=== PATIENT | male | born 1965 | race Caucasian/White ===

== ENCOUNTER 2021-02-04 17:31 | Inpatient (IN) | payer OTHER ==
[2021-02-04 21:13] VITALS: BMI 23.8
[2021-02-04] MEDS ORDERED: P-EPHED 60MG/TRIPROLIDI 2.5MG TABLET PO PRN (21:59)
[2021-02-04] MEDS ORDERED: NICOTINE POLACRILEX 2 MG GUM BUC PRN (21:59)
[2021-02-04] MEDS ORDERED: ACETAMINOPHEN 325 MG TABLET (FP) PO PRN ×2 (21:59)
[2021-02-04] MEDS ORDERED: BISMUTH SUBSALICYLATE 524 MG/30 ML UD PO PRN (21:59)
[2021-02-04] MEDS ORDERED: MAGNESIUM CITRATE 300 ML BOTTLE PO PRN (21:59)
[2021-02-04] MEDS ORDERED: MAGNESIUM HYDROX 2400MG/30ML ORAL SUSPENSION 30 ML CUP PO PRN (21:59)
[2021-02-04] MEDS ORDERED: MENTHOL/PHENOL 1 EACH UD MM PRN (21:59)
[2021-02-04] MEDS ORDERED: IBUPROFEN 400 MG TABLET (FP) PO PRN (21:59)
[2021-02-04] MEDS ORDERED: MAG HYDROX/AL HYDROX/SIMETH 30 ML UNIT-DOSE CUP PO PRN (21:59)
[2021-02-04] MEDS ORDERED: chlordiazePOXIDE HCL 25 MG CAPSULE PO PRN (22:02)
[2021-02-04] MEDS: chlordiazePOXIDE HCL 25 MG CAPSULE PO SCH (23:40)
[2021-02-04] MEDS: THIAMINE HCL 100 MG TABLET (FP) PO SCH (23:41)
[2021-02-04] MEDS: MELATONIN 5 MG TABLETS PO SCH (23:41)
[2021-02-05] MEDS: chlordiazePOXIDE HCL 25 MG CAPSULE PO SCH ×4 (06:08→23:00)
[2021-02-05] MEDS: PRENATAL VITAMINS W/ FOLIC ACID TABLET (FP) PO SCH (11:08)
[2021-02-05 13:16] LABS: ALBUMIN 3.2 g/dl (3.4-5.0); BLOOD UREA NITROGEN 15.6 mg/dL (7-18)
[2021-02-05 13:29] LABS: BILIRUBIN,TOTAL 1.2 mg/dL (0.2-1); TOT PROT 6.5 g/dl (6.4-8.2)
[2021-02-05 13:34] LABS: CALCIUM 8.6 mg/dL (8.5-10.1)
[2021-02-05 13:36] LABS: HEMATOCRIT 36.2 % (35.4-49); HEMOGLOBIN 12.4 GM/dL (11.7-16.9); MCH 30.2 pg (25.7-33.7); MCHC 34.3 g/dl (32.0-35.9); MEAN CELL VOLUME 88.1 fl (80-96); MEAN PLT VOLUME 9.1 fl (7.5-11.1); PLATELET COUNT 183 K/MM3 (134-434); RBC 4.11 M/mm3 (4.00-5.60); RDW 14.9 % (11.9-15.9); WHITE BLOOD COUNT 4.4 K/mm3 (4.0-10.0)
[2021-02-05] MEDS: BUPRENORPHINE/NALOXONE 8 MG/2 MG FILM PACKET SL SCH ×2 (15:16→23:01)
[2021-02-05] MEDS: MELATONIN 5 MG TABLETS PO SCH (23:00)
[2021-02-05] MEDS: THIAMINE HCL 100 MG TABLET (FP) PO SCH (23:01)
[2021-02-06] MEDS: chlordiazePOXIDE HCL 25 MG CAPSULE PO SCH ×4 (07:54→22:16)
[2021-02-06] MEDS: BUPRENORPHINE/NALOXONE 8 MG/2 MG FILM PACKET SL SCH ×3 (07:54→22:16)
[2021-02-06] MEDS: PRENATAL VITAMINS W/ FOLIC ACID TABLET (FP) PO SCH (10:58)
[2021-02-06] MEDS: cloNIDine HCL 0.1 MG TABLET PO PRN (17:27)
[2021-02-06] MEDS: METHOCARBAMOL 500 MG TABLET PO PRN (17:28)
[2021-02-06] MEDS: hydrOXYzine PAMOATE 25 MG CAPSULE (FP) PO PRN (17:29)
[2021-02-06] MEDS: THIAMINE HCL 100 MG TABLET (FP) PO SCH (22:15)
[2021-02-06] MEDS: MELATONIN 5 MG TABLETS PO SCH (22:15)
[2021-02-07] MEDS ORDERED: chlordiazePOXIDE HCL 10 MG CAPSULE PO PRN
[2021-02-07] MEDS: chlordiazePOXIDE HCL 10 MG CAPSULE PO SCH ×4 (05:33→22:34)
[2021-02-07] MEDS: BUPRENORPHINE/NALOXONE 8 MG/2 MG FILM PACKET SL SCH ×3 (05:33→22:33)
[2021-02-07] MEDS: PRENATAL VITAMINS W/ FOLIC ACID TABLET (FP) PO SCH (11:11)
[2021-02-07] MEDS: cloNIDine HCL 0.1 MG TABLET PO PRN ×2 (13:13→20:20)
[2021-02-07] MEDS: MELATONIN 5 MG TABLETS PO SCH (22:32)
[2021-02-07] MEDS: hydrOXYzine PAMOATE 25 MG CAPSULE (FP) PO PRN (22:33)
[2021-02-07] MEDS: METHOCARBAMOL 500 MG TABLET PO PRN (22:33)
[2021-02-07] MEDS: THIAMINE HCL 100 MG TABLET (FP) PO SCH (23:03)
[2021-02-08] MEDS: chlordiazePOXIDE HCL 10 MG CAPSULE PO SCH ×2 (06:10→17:28)
[2021-02-08] MEDS: BUPRENORPHINE/NALOXONE 8 MG/2 MG FILM PACKET SL SCH ×3 (06:11→22:04)
[2021-02-08] MEDS: PRENATAL VITAMINS W/ FOLIC ACID TABLET (FP) PO SCH (10:53)
[2021-02-08] MEDS: cloNIDine HCL 0.1 MG TABLET PO PRN ×2 (13:12→22:08)
[2021-02-08] MEDS: MELATONIN 5 MG TABLETS PO SCH (22:04)
[2021-02-08] MEDS: THIAMINE HCL 100 MG TABLET (FP) PO SCH (22:04)
[2021-02-09] MEDS ORDERED: chlordiazePOXIDE HCL 10 MG CAPSULE PO ONE (05:00)
[2021-02-09] MEDS: BUPRENORPHINE/NALOXONE 8 MG/2 MG FILM PACKET SL SCH (05:49)
[2021-02-09 10:23] VITALS: BP 114/77; PULSE 81; TEMP 98.6
[2021-02-09] MEDS: PRENATAL VITAMINS W/ FOLIC ACID TABLET (FP) PO SCH (10:23)
== END 2021-02-09 10:56 | disposition other institution (70) | DRG 773 ==
LOC: YASAS 17:31 → Y3N 22:38
PROVIDERS: ADMIT Allergy & Immunology; ATTEND Allergy & Immunology
PROC: HZ2ZZZZ Detoxification Services for Substance Abuse Treatment (ICD-10-PCS; principal; 2021-02-04)
DX: F10.230 Alcohol dependence with withdrawal, uncomplicated (principal); F11.20 Opioid dependence, uncomplicated; F14.20 Cocaine dependence, uncomplicated; F13.20 Sedative, hypnotic or anxiolytic dependence, uncomplicated; F12.10 Cannabis abuse, uncomplicated; F17.210 Nicotine dependence, cigarettes, uncomplicated; M54.5 Low back pain; G89.29 Other chronic pain; Z51.81 Encounter for therapeutic drug level monitoring; Z79.899 Other long term (current) drug therapy; Z86.69 Personal history of other diseases of the nervous system and sense organs
CPT/HCPCS: 36415; 80053; 85027; 86780; 93005; 93010; C9803; J0735; U0003

== ENCOUNTER 2021-02-09 11:12 | Inpatient (IN) | payer OTHER ==
[2021-02-09] MEDS ORDERED: PNEUMOC 13-VAL CONJ-DIP CRM/PF 0.5 ML DISP.SYRIN IM ONE (11:35)
[2021-02-09] MEDS ORDERED: MAGNESIUM HYDROX 2400MG/30ML ORAL SUSPENSION 30 ML CUP PO PRN (12:32)
[2021-02-09] MEDS ORDERED: ACETAMINOPHEN 325 MG TABLET (FP) PO PRN (12:32)
[2021-02-09] MEDS ORDERED: P-EPHED 60MG/TRIPROLIDI 2.5MG TABLET PO PRN (12:32)
[2021-02-09] MEDS ORDERED: MENTHOL/PHENOL 1 EACH UD MM PRN (12:32)
[2021-02-09] MEDS ORDERED: guaiFENesin 200 MG/10 ML 10 ML UNIT-DOSE CUPS PO PRN (12:32)
[2021-02-09] MEDS ORDERED: MAGNESIUM CITRATE 300 ML BOTTLE PO PRN (12:32)
[2021-02-09] MEDS ORDERED: NICOTINE POLACRILEX 2 MG GUM BUC PRN (12:32)
[2021-02-09] MEDS ORDERED: MAG HYDROX/AL HYDROX/SIMETH 30 ML UNIT-DOSE CUP PO PRN (12:32)
[2021-02-09] MEDS ORDERED: LOPERAMIDE HCL 2 MG CAPSULE PO PRN (12:32)
[2021-02-09] MEDS ORDERED: PNEUMOCOCCAL 23 VACCINE 0.5 ML VIAL IM ONE (13:00)
[2021-02-09] MEDS: hydrOXYzine PAMOATE 25 MG CAPSULE (FP) PO PRN ×2 (13:17→21:05)
[2021-02-09] MEDS: BUPRENORPHINE/NALOXONE 8 MG/2 MG FILM PACKET SL SCH ×2 (13:17→21:06)
[2021-02-09] MEDS: MELATONIN 5 MG TABLETS PO SCH (21:05)
[2021-02-09] MEDS: THIAMINE HCL 100 MG TABLET (FP) PO SCH (21:05)
[2021-02-10] MEDS: BUPRENORPHINE/NALOXONE 8 MG/2 MG FILM PACKET SL SCH ×3 (06:03→21:35)
[2021-02-10] MEDS ORDERED: PT OWN MED DRAWER 7, Y5N ONE (07:57)
[2021-02-10] MEDS: PRENATAL VITAMINS W/ FOLIC ACID TABLET (FP) PO SCH (09:53)
[2021-02-10] MEDS: hydrOXYzine PAMOATE 25 MG CAPSULE (FP) PO PRN ×2 (09:53→21:35)
[2021-02-10] MEDS ORDERED: PATIENT'S OWN MEDICATION (NON-FORMULARY) (Dextroamphetamine/Amphetamine [Adderall Xr 30 Mg PO SCH (10:00)
[2021-02-10] MEDS ORDERED: NICOTINE 7 MG/24 HOURS TOPICAL PATCH TD SCH (10:00)
[2021-02-10] MEDS ORDERED: MASKS NR ONE (11:05)
[2021-02-10] MEDS ORDERED: PNEUMOCOCCAL 23 VACCINE 0.5 ML VIAL IM ONE (12:00)
[2021-02-10] MEDS: GABAPENTIN 400 MG CAPSULE PO SCH ×2 (13:03→21:35)
[2021-02-10] MEDS: DEXTROAMPHETAMINE/AMPHETAMINE 10 MG CAP.ER.24H PO SCH (14:43)
[2021-02-10] MEDS ORDERED: AMPHETAMINE PO SCH (17:00)
[2021-02-10] MEDS ORDERED: DEXTROAMPHETAMINE PO SCH (17:00)
[2021-02-10] MEDS: MELATONIN 5 MG TABLETS PO SCH (21:35)
[2021-02-10] MEDS: AMITRIPTYLINE HCL 25 MG TABLET PO SCH (21:35)
[2021-02-10] MEDS: THIAMINE HCL 100 MG TABLET (FP) PO SCH (21:35)
[2021-02-10] MEDS: PRAZOSIN HCL 1 MG CAPSULE PO SCH (21:36)
[2021-02-11] MEDS: GABAPENTIN 400 MG CAPSULE PO SCH ×3 (06:01→21:17)
[2021-02-11] MEDS: DEXTROAMPHETAMINE/AMPHETAMINE 10 MG CAP.ER.24H PO SCH (06:02)
[2021-02-11] MEDS: BUPRENORPHINE/NALOXONE 8 MG/2 MG FILM PACKET SL SCH ×3 (06:02→21:18)
[2021-02-11] MEDS: hydrOXYzine PAMOATE 25 MG CAPSULE (FP) PO PRN (10:12)
[2021-02-11] MEDS: IBUPROFEN 400 MG TABLET (FP) PO PRN (10:13)
[2021-02-11] MEDS: PRENATAL VITAMINS W/ FOLIC ACID TABLET (FP) PO SCH (10:13)
[2021-02-11] MEDS ORDERED: COLLOIDAL OATMEAL 1 BAR EACH TP PRN (10:30)
[2021-02-11] MEDS: TOLNAFTATE 1% POWDER 45 GM POW TP SCH (10:55)
[2021-02-11] MEDS: hydrOXYzine PAMOATE 50 MG CAPSULE (FP) PO PRN (13:32)
[2021-02-11] MEDS: PANTOPRAZOLE 40 MG TABLET PO SCH (15:59)
[2021-02-11] MEDS: AMMONIUM LACTATE 12% LOTION 225 GM BOTTLE TP PRN (16:00)
[2021-02-11] MEDS: PRAZOSIN HCL 1 MG CAPSULE PO SCH (21:16)
[2021-02-11] MEDS: MELATONIN 5 MG TABLETS PO SCH (21:17)
[2021-02-11] MEDS: THIAMINE HCL 100 MG TABLET (FP) PO SCH (21:17)
[2021-02-11] MEDS: AMITRIPTYLINE HCL 25 MG TABLET PO SCH (22:49)
[2021-02-12] MEDS: GABAPENTIN 400 MG CAPSULE PO SCH ×3 (05:47→21:35)
[2021-02-12] MEDS: BUPRENORPHINE/NALOXONE 8 MG/2 MG FILM PACKET SL SCH ×3 (05:47→21:38)
[2021-02-12] MEDS: DEXTROAMPHETAMINE/AMPHETAMINE 10 MG CAP.ER.24H PO SCH (05:47)
[2021-02-12] MEDS: hydrOXYzine PAMOATE 50 MG CAPSULE (FP) PO PRN (09:53)
[2021-02-12] MEDS: PANTOPRAZOLE 40 MG TABLET PO SCH (09:53)
[2021-02-12] MEDS: TOLNAFTATE 1% POWDER 45 GM POW TP SCH ×2 (09:53→21:59)
[2021-02-12] MEDS: PRENATAL VITAMINS W/ FOLIC ACID TABLET (FP) PO SCH (09:53)
[2021-02-12] MEDS: AMMONIUM LACTATE 12% LOTION 225 GM BOTTLE TP PRN (09:55)
[2021-02-12] MEDS: IBUPROFEN 400 MG TABLET (FP) PO PRN (13:08)
[2021-02-12] MEDS ORDERED: DEXTROAMPHETAMINE/AMPHETAMINE 10 MG CAP.ER.24H PO SCH (14:00)
[2021-02-12] MEDS: THIAMINE HCL 100 MG TABLET (FP) PO SCH (21:35)
[2021-02-12] MEDS: MELATONIN 5 MG TABLETS PO SCH (21:35)
[2021-02-12] MEDS: PRAZOSIN HCL 1 MG CAPSULE PO SCH (21:35)
[2021-02-12] MEDS: AMITRIPTYLINE HCL 25 MG TABLET PO SCH (21:36)
[2021-02-13] MEDS: TOLNAFTATE 1% POWDER 45 GM POW TP SCH (01:34)
[2021-02-13] MEDS: DEXTROAMPHETAMINE/AMPHETAMINE 10 MG CAP.ER.24H PO SCH (05:44)
[2021-02-13] MEDS: BUPRENORPHINE/NALOXONE 8 MG/2 MG FILM PACKET SL SCH (05:44)
[2021-02-13] MEDS: GABAPENTIN 400 MG CAPSULE PO SCH (05:44)
[2021-02-13 06:47] VITALS: BP 139/81; PULSE 89; TEMP 98.1
== END 2021-02-13 07:23 | disposition left against medical advice (07) | DRG 770 ==
LOC: YASAS 11:12 → Y3E 11:14 → Y3W 11:28
PROVIDERS: ADMIT Allergy & Immunology; ATTEND Allergy & Immunology
PROC: HZ42ZZZ Group Counseling for Substance Abuse Treatment, Cognitive-Behavioral (ICD-10-PCS; principal; 2021-02-09)
DX: F11.20 Opioid dependence, uncomplicated (principal); F14.20 Cocaine dependence, uncomplicated; F13.20 Sedative, hypnotic or anxiolytic dependence, uncomplicated; F10.10 Alcohol abuse, uncomplicated; F12.20 Cannabis dependence, uncomplicated; F17.210 Nicotine dependence, cigarettes, uncomplicated; F19.282 Other psychoactive substance dependence with psychoactive substance-induced sleep disorder; F19.24 Other psychoactive substance dependence with psychoactive substance-induced mood disorder; F31.9 Bipolar disorder, unspecified; F98.8 Other specified behavioral and emotional disorders with onset usually occurring in childhood and adolescence; F43.10 Post-traumatic stress disorder, unspecified; M54.40 Lumbago with sciatica, unspecified side; G89.29 Other chronic pain; Z62.810 Personal history of physical and sexual abuse in childhood; Z87.828 Personal history of other (healed) physical injury and trauma; Z51.81 Encounter for therapeutic drug level monitoring
CPT/HCPCS: 90732; C9803; G0009; U0003

== ENCOUNTER 2021-02-13 13:54 | Inpatient (IN) | payer OTHER ==
[2021-02-13] MEDS ORDERED: ACETAMINOPHEN 325 MG TABLET (FP) PO PRN (16:21)
[2021-02-13] MEDS ORDERED: NICOTINE POLACRILEX 2 MG GUM BC PRN (16:21)
[2021-02-13] MEDS ORDERED: hydrOXYzine PAMOATE 25 MG CAPSULE (FP) PO PRN (16:21)
[2021-02-13] MEDS ORDERED: P-EPHED 60MG/TRIPROLIDI 2.5MG TABLET PO PRN (16:21)
[2021-02-13] MEDS ORDERED: guaiFENesin 200 MG/10 ML 10 ML UNIT-DOSE CUPS PO PRN (16:21)
[2021-02-13] MEDS ORDERED: MAG HYDROX/AL HYDROX/SIMETH 30 ML UNIT-DOSE CUP PO PRN (16:21)
[2021-02-13] MEDS ORDERED: IBUPROFEN 400 MG TABLET (FP) PO PRN (16:21)
[2021-02-13] MEDS ORDERED: MAGNESIUM CITRATE 300 ML BOTTLE PO PRN (16:21)
[2021-02-13] MEDS ORDERED: LOPERAMIDE HCL 2 MG CAPSULE PO PRN (16:21)
[2021-02-13] MEDS ORDERED: MAGNESIUM HYDROX 2400MG/30ML ORAL SUSPENSION 30 ML CUP PO PRN (16:21)
[2021-02-13 16:30] VITALS: BMI 25.0
[2021-02-13] MEDS: THIAMINE HCL 100 MG TABLET (FP) PO SCH (21:08)
[2021-02-13] MEDS: MELATONIN 5 MG TABLETS PO SCH (21:08)
[2021-02-13] MEDS: AMITRIPTYLINE HCL 50 MG TABLET PO SCH (21:08)
[2021-02-13] MEDS: PRAZOSIN HCL 1 MG CAPSULE PO SCH (21:09)
[2021-02-13] MEDS: BUPRENORPHINE/NALOXONE 8 MG/2 MG FILM PACKET SL SCH (21:10)
[2021-02-14] MEDS ORDERED: MASKS NR ONE (06:09)
[2021-02-14] MEDS: DEXTROAMPHETAMINE/AMPHETAMINE 10 MG CAP.ER.24H PO SCH ×2 (06:10→14:00)
[2021-02-14] MEDS: BUPRENORPHINE/NALOXONE 8 MG/2 MG FILM PACKET SL SCH ×3 (06:10→21:18)
[2021-02-14] MEDS: PRENATAL VITAMINS W/ FOLIC ACID TABLET (FP) PO SCH (09:41)
[2021-02-14] MEDS: NICOTINE 7 MG/24 HOURS TOPICAL PATCH TD SCH (09:42)
[2021-02-14] MEDS: GABAPENTIN 400 MG CAPSULE PO SCH ×2 (14:00→21:16)
[2021-02-14] MEDS: PANTOPRAZOLE 40 MG TABLET PO SCH (14:00)
[2021-02-14] MEDS: AMITRIPTYLINE HCL 50 MG TABLET PO SCH (21:16)
[2021-02-14] MEDS: THIAMINE HCL 100 MG TABLET (FP) PO SCH (21:16)
[2021-02-14] MEDS: MELATONIN 5 MG TABLETS PO SCH (21:16)
[2021-02-14] MEDS: PRAZOSIN HCL 1 MG CAPSULE PO SCH (21:17)
[2021-02-15] MEDS: BUPRENORPHINE/NALOXONE 8 MG/2 MG FILM PACKET SL SCH ×3 (05:54→21:06)
[2021-02-15] MEDS: DEXTROAMPHETAMINE/AMPHETAMINE 10 MG CAP.ER.24H PO SCH ×2 (05:54→13:39)
[2021-02-15] MEDS: GABAPENTIN 400 MG CAPSULE PO SCH ×3 (05:54→21:04)
[2021-02-15] MEDS: NICOTINE 7 MG/24 HOURS TOPICAL PATCH TD SCH (09:42)
[2021-02-15] MEDS: PRENATAL VITAMINS W/ FOLIC ACID TABLET (FP) PO SCH (09:42)
[2021-02-15] MEDS: PANTOPRAZOLE 40 MG TABLET PO SCH (09:42)
[2021-02-15] MEDS: PRAZOSIN HCL 1 MG CAPSULE PO SCH (21:04)
[2021-02-15] MEDS: THIAMINE HCL 100 MG TABLET (FP) PO SCH (21:04)
[2021-02-15] MEDS: AMITRIPTYLINE HCL 50 MG TABLET PO SCH (21:04)
[2021-02-15] MEDS: MELATONIN 5 MG TABLETS PO SCH (21:04)
[2021-02-16] MEDS: GABAPENTIN 400 MG CAPSULE PO SCH ×3 (06:13→21:30)
[2021-02-16] MEDS: DEXTROAMPHETAMINE/AMPHETAMINE 10 MG CAP.ER.24H PO SCH ×2 (06:13→13:35)
[2021-02-16] MEDS: BUPRENORPHINE/NALOXONE 8 MG/2 MG FILM PACKET SL SCH ×3 (06:13→21:32)
[2021-02-16] MEDS: PANTOPRAZOLE 40 MG TABLET PO SCH (10:12)
[2021-02-16] MEDS: PRENATAL VITAMINS W/ FOLIC ACID TABLET (FP) PO SCH (10:12)
[2021-02-16] MEDS: NICOTINE 7 MG/24 HOURS TOPICAL PATCH TD SCH (10:13)
[2021-02-16] MEDS ORDERED: IBUPROFEN 400 MG TABLET (FP) PO PRN (11:07)
[2021-02-16] MEDS: LIDOCAINE 5% TOPICAL PATCH TP SCH (12:47)
[2021-02-16] MEDS: AMMONIUM LACTATE 12% LOTION 225 GM BOTTLE TP SCH ×2 (12:47→21:32)
[2021-02-16] MEDS: NYSTATIN POWDER 100,000 UNITS/GM - 15 GM TOPICAL POWDER TP SCH ×2 (15:24→21:34)
[2021-02-16] MEDS ORDERED: PT OWN MED DRAWER 7, Y5N ONE (20:39)
[2021-02-16] MEDS: MELATONIN 5 MG TABLETS PO SCH (21:31)
[2021-02-16] MEDS: AMITRIPTYLINE HCL 50 MG TABLET PO SCH (21:31)
[2021-02-16] MEDS: THIAMINE HCL 100 MG TABLET (FP) PO SCH (21:31)
[2021-02-16] MEDS: PRAZOSIN HCL 1 MG CAPSULE PO SCH (21:31)
[2021-02-16] MEDS: LIDOCAINE PATCH REMOVAL MC SCH (21:33)
[2021-02-17] MEDS: DEXTROAMPHETAMINE/AMPHETAMINE 10 MG CAP.ER.24H PO SCH (06:10)
[2021-02-17] MEDS: BUPRENORPHINE/NALOXONE 8 MG/2 MG FILM PACKET SL SCH ×3 (06:10→21:15)
[2021-02-17] MEDS: GABAPENTIN 400 MG CAPSULE PO SCH ×3 (06:10→21:13)
[2021-02-17] MEDS ORDERED: PT OWN MED DRAWER 7, Y5N ONE ×2 (08:50→19:12)
[2021-02-17] MEDS ORDERED: MASKS NR ONE (10:01)
[2021-02-17] MEDS: PRENATAL VITAMINS W/ FOLIC ACID TABLET (FP) PO SCH (10:02)
[2021-02-17] MEDS: NYSTATIN POWDER 100,000 UNITS/GM - 15 GM TOPICAL POWDER TP SCH ×2 (10:02→21:13)
[2021-02-17] MEDS: NICOTINE 7 MG/24 HOURS TOPICAL PATCH TD SCH (10:02)
[2021-02-17] MEDS: PANTOPRAZOLE 40 MG TABLET PO SCH (10:02)
[2021-02-17] MEDS: LIDOCAINE 5% TOPICAL PATCH TP SCH (10:02)
[2021-02-17] MEDS: AMMONIUM LACTATE 12% LOTION 225 GM BOTTLE TP SCH ×2 (10:17→21:13)
[2021-02-17] MEDS ORDERED: MELATONIN 5 MG TABLETS PO PRN (11:02)
[2021-02-17] MEDS ORDERED: DEXTROAMPHETAMINE/AMPHETAMINE 10 MG CAP.ER.24H PO SCH (14:00)
[2021-02-17] MEDS: THIAMINE HCL 100 MG TABLET (FP) PO SCH (21:13)
[2021-02-17] MEDS: PRAZOSIN HCL 1 MG CAPSULE PO SCH (21:13)
[2021-02-17] MEDS: AMITRIPTYLINE HCL 50 MG TABLET PO SCH (21:13)
[2021-02-17] MEDS: LIDOCAINE PATCH REMOVAL MC SCH (21:15)
[2021-02-18] MEDS: BUPRENORPHINE/NALOXONE 8 MG/2 MG FILM PACKET SL SCH (05:56)
[2021-02-18] MEDS: DEXTROAMPHETAMINE/AMPHETAMINE 10 MG CAP.ER.24H PO SCH (05:56)
[2021-02-18] MEDS: GABAPENTIN 400 MG CAPSULE PO SCH (05:57)
[2021-02-18 07:06] VITALS: BP 141/83; PULSE 83; TEMP 97.8
[2021-02-18] MEDS: NYSTATIN POWDER 100,000 UNITS/GM - 15 GM TOPICAL POWDER TP SCH (09:05)
[2021-02-18] MEDS: PANTOPRAZOLE 40 MG TABLET PO SCH (09:05)
[2021-02-18] MEDS: PRENATAL VITAMINS W/ FOLIC ACID TABLET (FP) PO SCH (09:05)
[2021-02-18] MEDS: NICOTINE 7 MG/24 HOURS TOPICAL PATCH TD SCH (09:06)
[2021-02-18] MEDS: LIDOCAINE 5% TOPICAL PATCH TP SCH (09:06)
[2021-02-18] MEDS: AMMONIUM LACTATE 12% LOTION 225 GM BOTTLE TP SCH (09:06)
== END 2021-02-18 09:13 | disposition home or self-care (01) | DRG 772 ==
LOC: YASAS 13:54 → Y3W 16:02
PROVIDERS: ADMIT Allergy & Immunology; ATTEND Allergy & Immunology
PROC: HZ42ZZZ Group Counseling for Substance Abuse Treatment, Cognitive-Behavioral (ICD-10-PCS; principal; 2021-02-13)
DX: F10.20 Alcohol dependence, uncomplicated (principal); F11.20 Opioid dependence, uncomplicated; F14.20 Cocaine dependence, uncomplicated; F13.20 Sedative, hypnotic or anxiolytic dependence, uncomplicated; F31.9 Bipolar disorder, unspecified; F19.282 Other psychoactive substance dependence with psychoactive substance-induced sleep disorder; F19.24 Other psychoactive substance dependence with psychoactive substance-induced mood disorder; F43.10 Post-traumatic stress disorder, unspecified; F98.8 Other specified behavioral and emotional disorders with onset usually occurring in childhood and adolescence; M25.511 Pain in right shoulder; M54.40 Lumbago with sciatica, unspecified side; G89.29 Other chronic pain; Z62.810 Personal history of physical and sexual abuse in childhood; Z87.828 Personal history of other (healed) physical injury and trauma
CPT/HCPCS: C9803; U0003